=== PATIENT | female | born 1935 | race Hispanic/Latino ===

== ENCOUNTER 2018-11-09 10:47 | Emergency (ER) | payer MEDICARE | END 2018-11-09 12:00 | disposition home or self-care (01) | LOC: EDH 10:47 | DX: S61.412A Laceration without foreign body of left hand, initial encounter (principal); I10 Essential (primary) hypertension; E78.00 Pure hypercholesterolemia, unspecified; G30.9 Alzheimer's disease, unspecified; F02.80 Dementia in other diseases classified elsewhere, unspecified severity, without behavioral disturbance, psychotic disturbance, mood disturbance, and anxiety; Z90.49 Acquired absence of other specified parts of digestive tract; Z88.0 Allergy status to penicillin; X58.XXXA Exposure to other specified factors, initial encounter; Y93.89 Activity, other specified; Y92.098 Other place in other non-institutional residence as the place of occurrence of the external cause; Y99.8 Other external cause status ==

== ENCOUNTER 2018-11-16 09:22 | Emergency (ER) | payer MEDICARE ==
[2018-11-16 10:14] LABS: BASOPHILS % (AUTO) 1.3 % (0.0-5.0); EOSINOPHILS % (AUTO) 1.3 % (0.0-8.0); HEMATOCRIT 38.8 % (36-48); LYMPHOCYTES % (AUTO) 16.2 % (21.0-51.0); MEAN CORPUSCULAR HEMOGLOBIN 27.5 pg (27.0-33.0); MEAN CORPUSCULAR HGB CONC 33.3 g/dL (32.0-36.0); MEAN CORPUSCULAR VOLUME 82.5 fL (79-99); MONOCYTES % (AUTO) 5.6 % (3.0-13.0); NEUTROPHILS % (AUTO) 75.6 % (40.0-77.0); PLATELET COUNT (AUTO) 275 K/uL (130-400); RED CELL DISTRIBUTION WIDTH 15.3 % (11.0-15.5); WHITE BLOOD COUNT (AUTO) 6.8 K/uL (4.8-10.8)
[2018-11-16 11:58] LABS: CREATININE 0.8 mg/dL (0.5-1.5); POTASSIUM 3.4 mmol/L (3.5-5.1)
[2018-11-16] MEDS ORDERED: DOXYCYCLINE HYCLATE 100 MG TABLET PO ONE (12:34)
== END 2018-11-16 13:03 | disposition home or self-care (01) ==
LOC: EDH 09:22
DX: S61.502A Unspecified open wound of left wrist, initial encounter (principal); S61.402A Unspecified open wound of left hand, initial encounter; I10 Essential (primary) hypertension; E78.00 Pure hypercholesterolemia, unspecified; Z88.0 Allergy status to penicillin; Z87.891 Personal history of nicotine dependence; Z90.49 Acquired absence of other specified parts of digestive tract; Z98.890 Other specified postprocedural states; X58.XXXA Exposure to other specified factors, initial encounter; Y93.89 Activity, other specified; Y92.89 Other specified places as the place of occurrence of the external cause; Y99.8 Other external cause status
CPT/HCPCS: 36415; 80048; 85025

== ENCOUNTER 2019-08-24 22:41 | Emergency (ER) | payer MEDICARE ==
[2019-08-25] MEDS ORDERED: TETANUS/DIPHTHERIA TOXOID [ADULT] 0.5 ML VIAL IM ONE (00:44)
== END 2019-08-25 01:01 | disposition home or self-care (01) ==
LOC: EDH 22:41
DX: S50.812A Abrasion of left forearm, initial encounter (principal); I10 Essential (primary) hypertension; E78.00 Pure hypercholesterolemia, unspecified; Z88.0 Allergy status to penicillin; X58.XXXA Exposure to other specified factors, initial encounter; Y93.89 Activity, other specified; Y92.89 Other specified places as the place of occurrence of the external cause; Y99.8 Other external cause status
CPT/HCPCS: 90471; 90714

== ENCOUNTER 2021-12-28 09:14 | Emergency (ER) | payer OTHER, MEDICARE ==
[~2021-12-28] VITALS: Ht 147.3 cm; Wt 51.3 kg
[2021-12-28 09:33] VITALS: BP 136/65
[2021-12-28] MEDS ORDERED: CEPH500B PO (09:58)
[2021-12-28] MEDS ORDERED: CEPHALEXIN 500 MG CAPSULE PO SCH (10:00)
[2021-12-28] MEDS ORDERED: CEPHALEXIN 250 MG CAPSULE ONE (10:03)
== END 2021-12-28 10:08 | disposition home or self-care (01) ==
LOC: EDH 09:14
DX: S51.811A Laceration without foreign body of right forearm, initial encounter (principal); E78.00 Pure hypercholesterolemia, unspecified; I10 Essential (primary) hypertension; F03.90 Unspecified dementia, unspecified severity, without behavioral disturbance, psychotic disturbance, mood disturbance, and anxiety; M19.90 Unspecified osteoarthritis, unspecified site; Z90.89 Acquired absence of other organs; Z88.0 Allergy status to penicillin; X58.XXXA Exposure to other specified factors, initial encounter; Y93.89 Activity, other specified; Y92.89 Other specified places as the place of occurrence of the external cause; Y99.8 Other external cause status

== ENCOUNTER 2022-03-07 14:20 | Emergency (ER) | payer OTHER, MEDICARE ==
[~2022-03-07] VITALS: Ht 149.9 cm; Wt 54.4 kg
[~2022-03-07 14:20] MED LIST: CEPH500B PO
[2022-03-07 14:28] VITALS: BP 159/91
[2022-03-07 15:06] LABS: BASOPHILS % (AUTO) 0.1 % (0.0-5.0); EOSINOPHILS % (AUTO) 0.1 % (0.0-8.0); HEMATOCRIT 37.9 % (36-48); LYMPHOCYTES % (AUTO) 5.7 % (21.0-51.0); MEAN CORPUSCULAR HEMOGLOBIN 27.6 pg (27.0-33.0); MEAN CORPUSCULAR VOLUME 81.2 fL (79-99); MONOCYTES % (AUTO) 5.1 % (3.0-13.0); PLATELET COUNT (AUTO) 147 K/uL (130-400); RED BLOOD CELL COUNT(AUTO) 4.67 MIL/uL (4.00-5.50); RED CELL DISTRIBUTION WIDTH 16.5 % (11.0-15.5); WHITE BLOOD COUNT (AUTO) 7.7 K/uL (4.8-10.8)
[2022-03-07 15:15] LABS: CREATININE 0.7 mg/dL (0.5-1.5); POTASSIUM 3.3 mmol/L (3.5-5.1)
[2022-03-07 15:20] LABS: ALBUMIN 2.8 g/dL (3.5-5.0); TOTAL PROTEIN, SERUM 6.2 g/dL (6.0-8.3)
[2022-03-07 15:28] LABS: B-TYPE NATRIURETIC PEPTIDE 149 pg/mL (0-100)
[2022-03-07] MEDS ORDERED: LORA10TA7 PO (16:59)
[2022-03-07] MEDS ORDERED: FLUT16H NASAL (16:59)
[2022-03-07] MEDS ORDERED: POTASSIUM BICARB/CIT AC 25 MEQ TABLET.EFF PO ONE (17:30)
== END 2022-03-07 17:19 | disposition home or self-care (01) ==
LOC: EDH 14:20
DX: J06.9 Acute upper respiratory infection, unspecified (principal); Z20.822 Contact with and (suspected) exposure to COVID-19; E78.00 Pure hypercholesterolemia, unspecified; F03.90 Unspecified dementia, unspecified severity, without behavioral disturbance, psychotic disturbance, mood disturbance, and anxiety; I10 Essential (primary) hypertension; Z88.0 Allergy status to penicillin; Z90.49 Acquired absence of other specified parts of digestive tract
CPT/HCPCS: 99285; 71045; 87635; 80053; 83880; 85025; 87804 ×2; 36415; 93005; C9803